=== PATIENT | female | born 1985 | race Caucasian/White ===

== ENCOUNTER 2024-01-20 20:14 | Inpatient (IN) ==
[2024-01-20] MEDS ORDERED: Lidocaine 1% VIAL 10 MG/ML 30 ML VIAL INJ PRN (20:36)
[2024-01-20 21:04] LABS: ABS Basophils 0.1 10^3/uL (0.0-0.1); ABS Lymphocytes 1.5 10^3/uL (1.0-4.8); ABS Monocytes 0.7 10^3/uL (0.0-0.9); ABS Neutrophils 9.2 10^3/uL (1.5-7.6); Eosinophil % 0.4 %; Hematocrit 35.9 % (35-45); Hemoglobin 12.3 g/dL (11.5-14.3); Lymphocyte % 13.3 %; Mean Corpuscular Hemoglobin 29.9 pg (27-33); Mean Corpuscular Hgb Conc 34.2 g/dL (31-36); Mean Corpuscular Volume 87.5 fL (80-97); Platelet Count 316 10^3/uL (150-450); Red Cell Distribution Width 14.4 % (12-17); White Blood Count 11.6 10^3/uL (3.8-11.8)
[2024-01-20] MEDS: Lactated Ringers 1000 ml BAG 1,000 ML IV ONE (21:05)
[2024-01-20] MEDS ORDERED: Phenylephrine 40 mcg/mL 10mL (400mcg) SYRINGE ONE (21:19)
[2024-01-20 21:26] LABS: Urine Benzodiazepine Screen None Detected (None Detect); Urine Cannabinoids Screen None Detected (None Detect); Urine Opiates Screen None Detected (None Detect)
[2024-01-20] MEDS: OBEPIDURAL (200 ML) 200 ML EPIDURAL ONE (21:45)
[2024-01-20] MEDS ORDERED: Sodium Citrate/Citric Acid LIQ 15 ML UDC PO PRN (21:57)
[2024-01-20] MEDS ORDERED: Phenylephrine 40 mcg/mL 10mL (400mcg) SYRINGE IV PUSH PRN ×2 (21:57)
[2024-01-20] MEDS ORDERED: OBEPIDURAL (200 ML) 200 ML EPIDURAL SCH (22:00)
[2024-01-20] MEDS: Oxytocin in LR 20,000 MILLI.UNIT/1,000 ML BAG IV ONE (23:23)
[2024-01-21] MEDS: Buffered Lidocaine 1% SYRIN 1 ml INTRADERM ONE (03:12)
[2024-01-21] MEDS: Lactated Ringers 1000 ml BAG 1,000 ML IV SCH ×2 (03:12→03:13)
[2024-01-21] MEDS: Lidocaine 1.5% EPI 1:200,000 30 ML SDV ONE (03:12)
[2024-01-21] MEDS: Lactated Ringers 1000 ml BAG 1,000 ML IV ONE (03:13)
[2024-01-21] MEDS: OBEPIDURAL (200 ML) 200 ML EPIDURAL SCH (03:13)
[2024-01-21] MEDS ORDERED: Glycerin ADULT 2.4 gm SUPP PR PRN (04:52)
[2024-01-21] MEDS ORDERED: Oxytocin in LR 20,000 MILLI.UNIT/1,000 ML BAG IV SCH (04:55)
[2024-01-21] MEDS ORDERED: Lactated Ringers 1000 ml BAG 1,000 ML IV SCH (05:00)
[2024-01-21] MEDS: Witch Hazel PAD JAR TOPICAL PRN (05:14)
[2024-01-21] MEDS: Dibucaine 1% OINT 28.35 GM TUBE PR PRN (05:14)
[2024-01-21 07:13] LABS: ABS Lymphocytes 1.6 10^3/uL (1.0-4.8); ABS Monocytes 0.8 10^3/uL (0.0-0.9); ABS Neutrophils 12.1 10^3/uL (1.5-7.6); ABS Nucleated RBC 0.01 10^3/ul; Eosinophil % 0.1 %; Hematocrit 27.8 % (35-45); Hemoglobin 9.6 g/dL (11.5-14.3); Lymphocyte % 10.7 %; Mean Corpuscular Hgb Conc 34.8 g/dL (31-36); Mean Corpuscular Volume 86.4 fL (80-97); Platelet Count 270 10^3/uL (150-450); Red Blood Count 3.21 10^6/uL (3.63-4.92); Red Cell Distribution Width 14.5 % (12-17); White Blood Count 14.5 10^3/uL (3.8-11.8)
[2024-01-22 08:54] VITALS: BP 134/85
== END 2024-01-22 11:30 | disposition home or self-care (01) | DRG 560 ==
LOC: MCHOBOUT 20:14 → MCHOB 20:35
PROVIDERS: ADMIT Midwife; ATTEND Midwife